=== PATIENT | female | born 1995 | race Caucasian/White ===

== ENCOUNTER 2018-05-04 09:32 | Emergency (ER) | payer OTHER ==
[~2018-05-04] VITALS: Ht 162.6 cm; Wt 59.2 kg
[2018-05-04 09:34] VITALS: BP 139/65
[2018-05-04] MEDS ORDERED: KETOROLAC 30 MG/1 ML IM ONE (10:00)
[2018-05-04] MEDS ORDERED: DIAZEPAM 5 MG TABLET PO ONE (10:00)
[2018-05-04] MEDS ORDERED: DIAZEPAM 5 MG TABLET ONE (10:02)
[2018-05-04] MEDS ORDERED: KETOROLAC 30 MG/1 ML ONE (10:02)
[2018-05-04] MEDS ORDERED: OXYcodone/APAP 5/325MG TABLET ONE (10:41)
[2018-05-04] MEDS ORDERED: OXYcodone/APAP 5/325MG TABLET PO ONE (11:00)
== END 2018-05-04 11:34 | disposition home or self-care (01) ==
LOC: ED 11:18
DX: S16.1XXA Strain of muscle, fascia and tendon at neck level, initial encounter (principal); S23.3XXA Sprain of ligaments of thoracic spine, initial encounter; S46.812A Strain of other muscles, fascia and tendons at shoulder and upper arm level, left arm, initial encounter; G43.909 Migraine, unspecified, not intractable, without status migrainosus; V49.49XA Driver injured in collision with other motor vehicles in traffic accident, initial encounter; Y93.89 Activity, other specified; Y99.8 Other external cause status; Y92.410 Unspecified street and highway as the place of occurrence of the external cause
CPT/HCPCS: 72072; 72125; 73030; 96372; 99284; J1885

== ENCOUNTER 2020-08-30 10:33 | Emergency (ER) | payer OTHER ==
[~2020-08-30] VITALS: Ht 162.6 cm; Wt 74.0 kg
--- NOTE | 2020-08-30 10:55 | NUR ---
EKG IN TRIAGE
--- NOTE | 2020-08-30 11:08 | NUR ---
pt to room at this time.
[2020-08-30] MEDS ORDERED: SODIUM CHLORIDE FLUSH 10ML SYR IVF ONE (11:30)
[2020-08-30 12:03] VITALS: BP 111/66
--- NOTE | 2020-08-30 12:09 | NUR ---
STEADY AMBULATION TO BATHROOM
[2020-08-30 12:10] LABS: BASOPHILS % (AUTO) 1 % (0-1); EOSINOPHILS % (AUTO) 1 % (1-7); LYMPHOCYTES % (AUTO) 34 % (22-44); MEAN CORPUSCULAR HEMOGLOBIN 31.9 pg (27.0-34.8); MEAN CORPUSCULAR HGB CONC 33.9 g/dL (32.4-35.8); MONOCYTES % (AUTO) 6 % (2-9); NEUTROPHILS % (AUTO) 58 % (42-75); PLATELET COUNT 314 x10^3/uL (130-400); RED BLOOD COUNT 4.33 x10^6/uL (3.82-5.3); RED CELL DISTRIBUTION WIDTH 13.8 % (9.6-15.2)
[2020-08-30 12:14] LABS: MD NO
[2020-08-30 12:23] LABS: ALANINE AMINOTRANSFERASE 17 U/L (12-78); ALBUMIN 3.5 g/dL (3.4-5.0); ANION GAP 8 mmol/L (5-15); CALCIUM 8.9 mg/dL (8.5-10.1); CHLORIDE 105 mmol/L (98-107); CREATININE 0.55 mg/dL (0.55-1.02)
[2020-08-30 12:28] LABS: ALKALINE PHOSPHATASE 65 U/L (45-117); BILIRUBIN,TOTAL 0.3 mg/dL (0.2-1.0); TOTAL PROTEIN 7.7 g/dL (6.4-8.2); TROPONIN I < 0.015 ng/mL (0.000-0.045)
== END 2020-08-30 13:02 | disposition home or self-care (01) ==
LOC: ED 12:55
DX: O26.891 Other specified pregnancy related conditions, first trimester (principal); R06.00 Dyspnea, unspecified; Z3A.12 12 weeks gestation of pregnancy
CPT/HCPCS: 36415; 71045; 80053; 83880; 84484; 85025; 85379; 93005; 99285

== ENCOUNTER 2020-10-14 17:20 | Emergency (ER) | payer OTHER ==
[~2020-10-14] VITALS: Ht 165.1 cm; Wt 74.2 kg
--- NOTE | 2020-10-14 17:50 | NUR ---
CC OF 12/11 ABD RUQ AND RLQ ABD PAIN SINCE LAST NIGHT. 18 WEEKS . PT STATES SHE HAS BEEN NAUSEOUS SINCE BECOMING . DENIES ANY VB, CRAMPING, DIARRHEA, AND URINARY SYMPTOMS. SO AT BEDSIDE Addendum: 10/14/20 at 1840 by SYLVIA UA COLLECTED AND SENT TO LAB
[2020-10-14 18:10] LABS: BASOPHILS % (AUTO) 1 % (0-1); EOSINOPHILS % (AUTO) 1 % (1-7); LYMPHOCYTES % (AUTO) 27 % (22-44); MEAN CORPUSCULAR HEMOGLOBIN 30.9 pg (27.0-34.8); MEAN CORPUSCULAR HGB CONC 33.2 g/dL (32.4-35.8); MEAN PLATELET VOLUME 8.9 fL (7.4-10.4); MONOCYTES % (AUTO) 6 % (2-9); NEUTROPHILS % (AUTO) 66 % (42-75); PLATELET COUNT 316 x10^3/uL (130-400); RED BLOOD COUNT 4.02 x10^6/uL (3.82-5.3); RED CELL DISTRIBUTION WIDTH 13.3 % (9.6-15.2)
[2020-10-14 18:17] LABS: MD NO
[2020-10-14 18:19] LABS: ALBUMIN 2.9 g/dL (3.4-5.0); ANION GAP 7 mmol/L (5-15); CALCIUM 8.6 mg/dL (8.5-10.1); CHLORIDE 107 mmol/L (98-107)
[2020-10-14 18:36] LABS: ALANINE AMINOTRANSFERASE 17 U/L (12-78); ALKALINE PHOSPHATASE 69 U/L (45-117); BILIRUBIN,TOTAL 0.3 mg/dL (0.2-1.0); CREATININE 0.42 mg/dL (0.55-1.02); TOTAL PROTEIN 6.7 g/dL (6.4-8.2)
[2020-10-14 19:25] LABS: MICROSCOPIC INDICATED
[2020-10-14 20:00] VITALS: BP 99/48
== END 2020-10-14 20:30 | disposition home or self-care (01) ==
LOC: ED 19:52
DX: O26.892 Other specified pregnancy related conditions, second trimester (principal); R10.31 Right lower quadrant pain; O21.8 Other vomiting complicating pregnancy; Z3A.18 18 weeks gestation of pregnancy
CPT/HCPCS: 36415; 76815; 80053; 81001; 85025; 87086; 99284